=== PATIENT | male | born 1970 | race Caucasian/White ===

== ENCOUNTER 2017-11-16 19:44 | Emergency (ER) | payer BC ==
--- NOTE | 2017-11-16 19:59 | EDM.PDOC ---
ED HPI GENERAL MEDICAL PROBLEM - General Chief Complaint: Neurological Problem Stated Complaint: POSS SEIZURE [id number] Time Seen by Provider: 11/16/17 19:58 Source of Information: Reports: Patient, Family History Limitations: Reports: No Limitations - History of Present Illness INITIAL COMMENTS - FREE TEXT/NARRATIVE: father states pt has no h/o seizures but has been heavy drinker and quit 1 week ago. seizure lasted ~1minute. pt states he feels fine now. - Related Data Allergies Allergy/AdvReac Type Severity Reaction Status Date / Time No Known Allergies Allergy Verified 11/16/17 20:09 Past Medical History - Past Surgical History Musculoskeletal Surgical History: Reports: Other (See Below) Other Musculoskeletal Surgeries/Procedures:: achillies repair ED ROS GENERAL - Review of Systems Review Of Systems: ROS reveals no pertinent complaints other than HPI. - Physical Exam Exam: See Below Exam Limited By: No Limitations General Appearance: Alert, WD/WN, No Apparent Distress Eye Exam: Bilateral Eye: PERRL (pupils ER @ 4mm) Ears: Hearing Grossly Normal Throat/Mouth: Normal Voice, No Airway Compromise, Evidence of Tongue Biting Head Exam: Atraumatic, Other (no O/B). No: Scalp Tenderness, Facial Tenderness Neck: Non-Tender, Full Range of Motion Respiratory/Chest: No Respiratory Distress Cardiovascular: Regular Rate, Rhythm GI/Abdominal: Soft, Non-Tender Neuro Exam (Abbreviated): Alert, Oriented, Normal Cognition, Normal Gait, No Motor/Sensory Deficits Psychiatric: Normal Affect, Normal Mood Skin Exam: Warm, Dry, Normal Color Course - Vital Signs Last Recorded V/S: Last Vital Signs Temp 37.2 C 11/16/17 19:58 Pulse 100 11/16/17 19:58 Resp 20 11/16/17 19:58 BP 117/77 11/16/17 19:58 Pulse Ox 93 L 11/16/17 19:58 - Orders/Labs/Meds Orders: Active Orders 24 hr Category Date Time Status EKG 12 Lead [EKG Documentation Completion] [RC] STAT Care 11/16/17 19:57 Active Sodium Chloride 0.9% [Normal Saline] 1,000 ml Med 11/16/17 20:26 Active IV .BOLUS Medication Orders Sodium Chloride (Normal Saline) 1,000 mls @ 999 mls/hr IV .BOLUS ONE Stop: 11/16/17 21:26 Last Admin: 11/16/17 20:29 Dose: Not Given Labs: Laboratory Tests 11/16/17 11/16/17 Range/Units 19:52 19:52 WBC 7.8 (5.0-10.0) 10^3/uL RBC 3.32 L (4.6-6.2) 10^6/uL Hgb 12.0 L (14.0-18.0) g/dL Hct 34.9 L (40.0-54.0) % MCV 105.1 H (80-100) fL MCH 36.1 H (27.0-34.0) pg MCHC 34.4 (33.0-35.0) g/dL Plt Count 147 L (150-450) 10^3/uL Neut % (Auto) 65.7 (42.2-75.2) % Lymph % (Auto) 19.5 L (20.5-50.1) % [place] % (Auto) 13.1 H (2-8) % Eos % (Auto) 1.1 (1.0-3.0) % Baso % (Auto) 0.6 (0.0-1.0) % Sodium 125 L (135-145) mmol/L Potassium 3.3 L (3.6-5.0) mmol/L Chloride 84 L (101-111) mmol/L Carbon Dioxide 23.0 (21.0-31.0) mmol/L Anion Gap 21.3 BUN 16 (7-18) mg/dL Creatinine 1.4 H (0.6-1.3) mg/dL Est Cr Clr Drug Dosing 76.10 mL/min Estimated GFR (MDRD) 55 BUN/Creatinine Ratio 11.42 Glucose 139 H (74-105) mg/dL Calcium 9.0 (8.4-10.2) mg/dl Total Bilirubin 3.4 H (0.2-1.0) mg/dL AST 311 H (10-42) IU/L ALT 143 H (10-60) IU/L Alkaline Phosphatase 75 (42-121) IU/L Troponin I < 0.02 (0.00-0.02) ng/ml Total Protein 6.9 (6.7-8.2) g/dl Albumin 3.6 (3.2-5.5) g/dl Globulin 3.3 Albumin/Globulin Ratio 1.09 Ethyl Alcohol < 5 mg/dL Meds: Medications Generic Name Dose Route Start Last Admin Trade Name Judy PRN Reason Stop Dose Admin Sodium Chloride 1,000 mls @ 999 mls/hr 11/16/17 20:26 11/16/17 20:29 Normal Saline IV 11/16/17 21:26 Not Given .BOLUS ONE Discontinued Medications Generic Name Dose Route Start Last Admin Trade Name Judy PRN Reason Stop Dose Admin Chlordiazepoxide HCl 25 mg 11/16/17 20:02 11/16/17 20:10 Librium PO 11/16/17 20:03 25 mg ONETIME ONE Administration Multivitamins/Minerals 10 ml/ 1,011.2 mls @ 999 mls/hr 11/16/17 20:00 Thiamine HCl 100 mg/ Folic IV 11/16/17 21:00 Acid 1 mg/ Lactated Ringer's .BOLUS ONE Thiamine HCl 100 mg/ Folic 1,001.2 mls @ 999 mls/hr 11/16/17 20:17 Acid 1 mg/ Lactated Ringer's IV 11/16/17 21:17 .BOLUS ONE Folic Acid 1 mg/ Lactated 1,000.2 mls @ 999 mls/hr 11/16/17 20:22 Ringer's IV 11/16/17 21:22 .BOLUS ONE - Re-Assessments/Exams Free Text/Narrative Re-Assessment/Exam: 11/16/17 21:23 results discussed with pt who adamantly declined IN NS states he can just drink gatorade. explained to pt re' difference between oral Vs IV. wants to go AMA. informed his father to return prn. Departure - Departure Time of Disposition: 21:25 Disposition: Against Medical Advice 07 Condition: Fair Clinical Impression: Seizure - Discharge Information Forms: Refusal of Care AMA - My Orders Last 24 Hours: My Active Orders 11/16/17 19:57 EKG 12 Lead [EKG Documentation Completion] [RC] STAT 11/16/17 20:26 Sodium Chloride 0.9% [Normal Saline] 1,000 ml IV .BOLUS - Assessment/Plan Last 24 Hours: My Active Orders 11/16/17 19:57 EKG 12 Lead [EKG Documentation Completion] [RC] STAT 11/16/17 20:26 Sodium Chloride 0.9% [Normal Saline] 1,000 ml IV .BOLUS
[2017-11-16] MEDS ORDERED: MVI, Adult with Vitamin K 10 ML, Thiamine 100 MG, Folic Acid 1 MG in Lactated Ringers 1... IV ONE ×4 (20:00)
[2017-11-16] MEDS ORDERED: chlordiazePOXIDE 25 MG Cap PO ONE (20:02)
[2017-11-16] MEDS ORDERED: THIAMINE IV ONE (20:17)
[2017-11-16] MEDS ORDERED: FOLIC ACID IV ONE ×2 (20:17→20:22)
[2017-11-16] MEDS ORDERED: LACTATED RINGERS IV ONE ×2 (20:17→20:22)
[2017-11-16] MEDS ORDERED: Sodium Chloride 0.9% 1,000 ML IV ONE (20:26)
[2017-11-16 20:32] LABS: CHLORIDE,CL 84 mmol/L (101-111); SODIUM,NA 125 mmol/L (135-145)
== END 2017-11-16 21:24 | disposition left against medical advice (07) ==
LOC: DL.ED 19:44
DX: R56.9 Unspecified convulsions (principal)
CPT/HCPCS: 36415; 80053; 84484; 85025; 93005; 99285; A9270; G0480